=== PATIENT | female | born 1990 | race African-American/Black ===

== ENCOUNTER 2016-04-01 20:48 | Emergency (ER) | payer MEDICAID ==
[2016-04-01 20:58] VITALS: BP 139/82; PULSE 100; TEMP 98; BMI 25.7
--- NOTE | 2016-04-01 21:29 | EDPRACDOC ---
- General Information Chief Complaint: Foreign Body Stated Complaint: FB IN RT EAR ? Q-TIP PAIN IN EAR Time Seen by Provider: 04/01/16 20:57 Information Source: Patient Mode Of Arrival: Car Home Medications: Home Medications No Home Medications 09/01/14 Allergies/Adverse Reactions: Allergies Allergy/AdvReac Type Severity Reaction Status Date / Time No Known Allergies Allergy Verified 04/01/16 21:01 - History of Present Illness Onset: [employer] HPI: PT PRESENTS TODAY WITH COTTON TIP STUCK IN THE RIGHT EAR SINCE [employer]. NO OTHER COMPLAINTS. Foreign Body Context: Reports: Injury Foreign Body: Other (COTTON) Location of Possible Foreign Body: Ear Pain Severity: Mild Shortness of breath: None Associated Signs & Symptoms: Reports: None ED Past Medical History - History Reviewed Yes Nurses notes reviewed and agree except as marked - Patient Medical History Psychological History: Reports: Anxiety. Denies: Depression Systemic History: Denies: Cancer Surgical History: Reports: Other ( DEMISE) - Family Medical History Denies: Hypertension, Diabetes, Cancer, Stroke, Cardiac Disorders - Social Medical History Smoking Status: Never smoker EDM Review of Systems - Review of Systems ROS Negative Except as Marked: Yes All systems reviewed and were negative except as marked Constitutional: No Symptoms Reported Eyes: No Symptoms Reported Ears: Pain, Other (FB) Throat: No Symptoms Reported Nose: No Symptoms Reported Respiratory: No Symptoms Reported Cardiovascular: No Symptoms Reported Gastrointestinal: No Symptoms Reported Neurological: No Symptoms Reported Musculoskeletal: No Symptoms Reported Integumentary: No Symptoms Reported - Physical Exam Constitutional: Alert (Awake), No apparent distress Oriented to: Time, Person, Place Last recorded Vital Signs: Last Vital Signs Temp 98 F 04/01/16 20:57 Pulse 100 04/01/16 20:57 Resp 18 04/01/16 20:57 BP 139/82 04/01/16 20:57 Pulse Ox 99 04/01/16 20:57 Oxygen Pulse Oxygen Saturation 99 O2 Device Oxygen Flow Rate Fraction of Inspired Oxygen ( FIO2) - HEENT Head: Normal Eye Exam: Normal Oropharynx: Normal Tympanic Membrane: Obscured ENT EAC: Foreign Body Nose: No Symptoms Reported Neck: Normal, Denies Pain, Midline - Respiratory/Cardiovascular Respiratory: Normal - CTA Cardiovascular: Normal - GI Palpation: Normal Tenderness: Non tender - Musculoskeletal Back: Normal Extremities: Normal - Integumentary Skin: Normal Lymphatics: Normal - Neurologic Cerebellar: Normal Mood Description: Normal Thought: Coherent Perception: Normal ED Procedures - Foreign Body Removal Informed of risks, benefits and alternatives described: Yes Informed Consent Signed: Verbal Possible Foreign Body Removal from: Ear Topical Medications: None Anesthetic: None Foreign Body removal attempted using: Manual Extraction Removal Attempt aided by: Forceps Removal Attempt was: Successfully Removed, FB Indentified Post-procedure exam: No Injury Decision Time to Discharge: 21:32 - Departure Disposition: Home Condition: Good Final Diagnosis: Foreign body in ear Instructions: Ear Foreign Body (ED) Education/Counseling Given To: Patient Education/Counseling Given Regarding: Diagnosis, Treatment, Follow Up Referrals: None,No Provider [Primary Care Provider] - One Week Prescriptions: No Action No Home Medications 0 NA DIR #0 info
== END 2016-04-01 21:47 | disposition home or self-care (01) ==
LOC: EDMC 20:48
DX: T16.1XXA Foreign body in right ear, initial encounter (principal); X58.XXXA Exposure to other specified factors, initial encounter; Y93.9 Activity, unspecified
CPT/HCPCS: 69200; 99282